=== PATIENT | female | born 1940 | race Caucasian/White ===

== ENCOUNTER → 2017-09-05 | Outpatient (CLI) | payer OTHER ==
[~2017-09-05] MED LIST: LEVO150T22
--- NOTE | 2017-09-06 13:17 | MAMMOGRAPHY REPORT ---
BILATERAL DIGITAL SCREENING MAMMOGRAM TOMOSYNTHESIS WITH CAD: 09/05/2017 CLINICAL HISTORY: Asymptomatic. Personal history of breast cancer. TECHNIQUE: Breast tomosynthesis in addition to standard 2D mammography was performed. Current study was also evaluated with a Computer Aided Detection (CAD) system. COMPARISON: Comparison is made to exams dated: 02/11/2016 mammogram, 01/22/2015 mammogram, 11/13/2013 mammogram, 11/06/2012 mammogram, 11/04/2011 mammogram, and 10/22/2010 mammogram - [facility] enter. BREAST COMPOSITION: There are scattered areas of fibroglandular density in both breasts. FINDINGS: There is evidence of prior bilateral breast surgery including expected architectural distor tion in each breast. Multiple surgical clips remain in place within the right breast. No new suspic ious mass, unexpected architectural distortion or cluster of microcalcifications is seen. IMPRESSION: ACR BI-RADS CATEGORY 1: NEGATIVE There is no mammographic evidence of malignancy. A 1 year screening mammogram is recommended. The pa tient will receive written notification of the results. Approximately 10% of breast cancers are not detected with mammography. A negative mammographic report should not delay biopsy if a clinically suggestive mass is present. Moon Junior M.D. ay/:09/05/2017 16:14:34 X Ray Physician: Jeniffer HIRSCH)(Magy), [facility] letter sent: Normal 1/2 BI-RADS Code: ACR BI-RADS Category 1: Negative
== END | disposition home or self-care (01) ==
LOC: C.MAMM 14:22
PROVIDERS: ATTEND Family Medicine
DX: Z12.31 Encounter for screening mammogram for malignant neoplasm of breast (principal)

== ENCOUNTER 2023-06-07 15:41 | Inpatient (IN) ==
[2023-06-07] MEDS ORDERED: Patient's HEIGHT &/or WEIGHT Needed SCH (15:54)
--- NOTE | 2023-06-07 15:59 | Emergency Department Note ---
Impression & Plan V-tach, Acute hypotension, JITENDRA (acute kidney injury), Metabolic acidosis ED Provider Note NAME: RUDY COATES AGE: 82 SEX: F : 1940 ARRIVES VIA: Ambulance INFORMANT: Patient ED PROVIDER(S): Jett Ferro DO CHIEF COMPLAINT: Weakness and diarrhea HPI: Patient is an 82-year-old female who presents to the ER with a past medical history of hypothyroidism that presents to the ER for weakness. She is pleasantly demented per EMS. They note that she has been having persistent diarrhea for the past 3 days. Denies any headache or change in vision. No chest pain or shortness of breath. No nausea or vomiting. They note that she did fall today. They also note that she has been very hypotensive with systolic pressures in the 80s. ADDITIONAL HISTORY OBTAINED: Per HPI Chronic Medical/Social Conditions Affecting Care: Per HPI PAST MEDICAL HISTORY:See Below PAST SURGICAL HISTORY:See Below FAMILY HISTORY:See Below SOCIAL HISTORY:See Below HOME MEDICATIONS:See Below ALLERGIES:See Below VITALS:See Below PHYSICAL EXAMINATION: GENERAL: Sitting up in bed, alert, chronically ill-appearing, disheveled EYE EXAM: normal conjunctiva. PERRL and EOM's grossly intact. OROPHARYNX:mucous membranes are dry NECK: supple, no nuchal rigidity, no adenopathy, non-tender LUNGS: Clear to auscultation. Normal chest wall mechanics HEART: no murmurs, S1 normal and S2 normal ABDOMEN: abdomen soft, non-tender, normo-active bowel sounds, no masses, no rebound or guarding. BACK: Back is symmetrical on inspection and there is no deformity, no midline tenderness, no CVA tenderness. SKIN: no rashes and no bruising UPPER EXTREMITIES: upper extremities are grossly normal. LOWER EXTREMITIES: No pitting edema. NEURO EXAM: Oriented to person, cranial nerves II-XII grossly intact, normal speech, no gross weakness of arms, no gross weakness of legs. MEDICAL DECISION MAKING: Patient is an 82-year-old female who presents ER for above-stated complaint. IV was established paroxetine. Labs show no significant leukocytosis or anemia. BMP shows metabolic acidosis with JITENDRA with creatinine 2.0. Lactate was normal. Mag was normal. LFTs bilirubin was unremarkable. TSH was unremarkable. UA was clean. Patient was given IV fluids. While she was here on the monitor she went into V. tach several x 1 of which appeared to be torsades. She was given magnesium and placed her on an amiodarone drip after third recurrence of short run of VT. She is a DNR/DNI but would want to be shocked if needed. Patient and family were updated at bedside to monitor closely. Consults/Care Managements Discussions: Per [facility] Triage Nursing notes reviewed. Limited review of prior medical records performed Vital Signs: reviewed and remarkable for no significant abnormalities Differential diagnosis: Differential diagnoses includes but is not limited to gastritis, peptic ulcer disease, GERD, gallbladder disease, pancreatitis, small bowel obstruction, appendicitis, diverticulitis, hernia, urinary tract infection, torsion, perforation, trauma, infectious. ER treatment provided: See below Diagnostics interpreted by me include EKG and cardiac monitoring as listed below: -Cardiac Monitoring: An order was placed for continuous cardiac monitoring. The monitor shows a rate of 83 with sinus rhythm. -ECG: Sinus rhythm rate 82 Left axis PVCs QTc 467 -Laboratory studies:Interpreted by me as stated above in MDM and shown below. Imaging studies: Xrays: As interpreted by me: Portable AP upright 1 view of the chest shows no focal Midrid CTs show: CT head and abdomen pelvis and head was unremarkable Procedures:none Critical Care: I have personally spent 32 minutes of critical care time in the direct management of this patient. This includes bedside care, interpretation of diagnostic studies, and testing, discussion with consultants, patient, and family members, and other required patient management activities. This 32 minutes is in excess of all separately billable procedures. Past Med/Surg History Medical History Tinnitus, bilateral Sensorineural hearing loss of both ears Dementia Hypothyroid Social History Smoking Status: Unknown if ever smoked Preferred Language: Uzbek Current Living Situation: Personal Care Facility Feels Safe at Home: Yes Allergies Allergies Allergy/AdvReac Type Severity Reaction Status Date / Time Sulfa (Sulfonamide Allergy Unknown Unknown Unverified 06/07/23 16:15 Antibiotics) Home Meds Home Medications Medication Instructions Recorded Confirmed cholecalciferol (vitamin D3) 125 125 mcg PO QAM 06/08/20 06/07/23 mcg (5,000 unit) tablet (Vitamin D3) levothyroxine 125 mcg tablet 125 mcg PO DAILYBB 06/08/20 06/07/23 lisinopril 10 mg tablet 10 mg PO QAM 06/08/20 06/07/23 lorazepam 0.5 mg tablet 0.5 mg PO .DAILY AT 12:00 PM 06/08/20 06/07/23 acetaminophen 325 mg tablet 650 mg PO Q4 PRN Fever Or Pain 10/23/20 06/07/23 melatonin 3 mg disintegrating 3 mg PO HS 10/23/20 06/07/23 tablet aspirin 81 mg chewable tablet 81 mg PO DAILY 06/18/21 06/07/23 docusate sodium 100 mg capsule 100 mg PO HS 06/18/21 06/07/23 citalopram 40 mg tablet 40 mg PO DAILY 04/29/23 06/07/23 cyanocobalamin (vitamin B-12) 1,000 mcg PO DAILY 04/29/23 06/07/23 1,000 mcg tablet (Vitamin B-12) fluticasone propionate 50 1 spray intranasal HS 04/29/23 06/07/23 mcg/actuation nasal spray,suspension lorazepam 0.5 mg tablet 0.5 mg PO DAILY pain per harmony 04/29/23 06/07/23 potassium chloride 20 mEq 20 meq PO DAILY 04/29/23 06/07/23 tablet,extended release(part/cryst) quetiapine 50 mg tablet 50 mg PO .BID AT 8AM & 2PM 04/29/23 06/07/23 quetiapine 50 mg tablet 100 mg PO HS 04/29/23 06/07/23 loperamide 2 mg tablet (Imodium 2 mg PO QID PRN Diarrhea 06/07/23 06/07/23 A-D) ondansetron HCl 4 mg tablet 4 mg PO Q6H PRN Nausea 06/07/23 06/07/23 tramadol 50 mg tablet 50 mg PO BID PRN pain 06/07/23 06/07/23 Results & Data (ED) Vital Signs Vital Signs - 24 hr 06/07/23 15:54 06/07/23 15:58 06/07/23 17:01 Temperature 36.6 C Temperature Source Oral Pulse Rate 82 77 Pulse Rate [Apical] 77 Respiratory Rate 24 15 Respiratory Effort / Characteristics Non-Labored Spontaneous Respiratory Pattern Blood Pressure 97/68 L Blood Pressure [Right Arm] 122/70 Blood Pressure Mean 77 Blood Pressure Mean [Right Arm] 87 Blood Pressure Position [Right Arm] Lying Pulse Oximetry 94 100 Oxygen Delivery Method Room Air Room Air Sepsis Recent Fever Within 48 Hours No Sepsis New/Unexplained Change in Mental Status No Sepsis Action Taken by Nursing Physician Notified 06/07/23 18:41 06/07/23 19:11 Temperature Temperature Source Pulse Rate 81 Pulse Rate [Apical] 83 Respiratory Rate 20 Respiratory Effort / Characteristics Non-Labored Spontaneous Respiratory Pattern Regular Blood Pressure Blood Pressure [Right Arm] 120/70 Blood Pressure Mean Blood Pressure Mean [Right Arm] 86 Blood Pressure Position [Right Arm] Lying Pulse Oximetry 98 Oxygen Delivery Method Room Air Sepsis Recent Fever Within 48 Hours Sepsis New/Unexplained Change in Mental Status Sepsis Action Taken by Nursing Laboratory Data 06/07/23 16:24 06/07/23 16:24 Lab Results 06/07/23 06/07/23 06/07/23 Range/Units 16:05 16:24 18:46 WBC 7.29 (4.8-10.8) K/ul RBC 4.17 L (4.20-5.40) M/uL Hgb 12.6 (12.0-16.0) g/dl Hct 39.8 (37.0-47.0) % MCV 95.4 (80.0-100.0) fL MCH 30.2 (25.0-34.0) pg MCHC 31.7 L (32.0-36.0) g/dL RDW Std Deviation 49.5 H (36.4-46.3) fL RDW Coeff of Luis Miguel 14.1 (11.5-14.5) % Plt Count 274 (130-400) K/uL MPV 9.6 (9.4-12.4) fL Immature Gran % (Auto) 1.1 % Neut % (Auto) 80.5 % Lymph % (Auto) 9.1 % [place] % (Auto) 7.0 % Eos % (Auto) 1.8 % Baso % (Auto) 0.5 % Neut # (Auto) 5.87 (1.40-6.50) K/uL Lymph # (Auto) 0.66 L (1.20-3.40) K/uL [place] # (Auto) 0.51 (0.11-0.59) K/uL Eos # (Auto) 0.13 (0.00-0.50) K/uL Baso # (Auto) 0.04 (0.00-0.20) K/uL Immature Gran # (Auto) 0.08 (0.01-0.20) K/uL Sodium 138 (136-145) mmol/L Potassium 3.8 (3.5-5.1) mmol/L Chloride 111 H (98-107) mmol/L Carbon Dioxide 18 L (21-32) mmol/L Anion Gap 9 (3-11) BUN 52 H (6-23) mg/dl Creatinine 2.07 H (0.6-1.2) mg/dl Est Cr Clr Drug Dosing Not Reportable Est GFR ( Amer) 24.9 ml/min Est GFR (Non-Af Amer) 21.4 ml/min BUN/Creatinine Ratio 25.1 H (10-20) Glucose 104 H (70-99(Fasting)) mg/dl Lactate 1.1 (0.4-2.0) mmol/L Calcium 8.6 (8.6-10.3) mg/dl Magnesium 1.8 (1.7-2.4) mg/dl Total Bilirubin 0.4 (0.2-1.0) mg/dl AST 14 (13-39) U/L ALT 12 (7-52) U/L Alkaline Phosphatase 80 (34-104) U/L Troponin I High Sens 11.8 (0-14) pg/ml Total Protein 6.0 (6.0-8.3) gm/dl Albumin 3.7 (3.4-5.0) gm/dl Globulin 2.3 L (2.5-4.0) gm/dl Albumin/Globulin Ratio 1.6 (0.9-2) Lipase 61 (11-82) U/L TSH 1.649 (0.300-4.500) uIu/ml Urine Color Yellow Urine Appearance Clear (Clear) Urine pH 5.0 (4.5-7.5) Ur Specific [place] 1.016 (1.000-1.030) Urine Protein Trace H (Negative) Urine Glucose (UA) Negative (Negative) Urine Ketones Trace H (Negative) Urine Blood Negative (Negative) Urine Nitrite Negative (Negative) Urine Bilirubin Negative (Negative) Urine Urobilinogen Negative (Negative) Ur Leukocyte Esterase Negative (Negative) Urine WBC (Auto) 1-5 (0-5) /hpf Urine RBC (Auto) 0-4 (0-4) /hpf U Hyaline Cast (Auto) 1-5 (0-5) /lpf U Epithel Cells (Auto) 5-10 H (0-5) /lpf Urine Bacteria (Auto) Negative (Negative) Administered Medications Magnesium Sulfate/Dextrose (Magnesium Sulfate / D5w) 1 gm in 100 mls @ 50 mls/hr IV Q2H BETHANY Stop: 06/07/23 22:44 Last Admin: 06/07/23 20:23 Dose: 50 mls/hr Documented By: Infusion: 06/07/23 20:23 Dose: Infused Documented By: Admin: 06/07/23 19:02 Dose: 50 mls/hr Documented By: AB Amiodarone HCl/Dextrose (Nexterone / D5w) 360 mg in 200 mls @ 33.333 mls/hr IV ONE ONE Stop: 06/08/23 00:55 Last Admin: 06/07/23 19:16 Dose: 1 mg/min, 33.3 mls/hr Documented By: Co-signed By: PRECIOUS Parenteral Electrolytes (Plasma-Lyte A Ph 7.4) 1,000 mls @ 100 mls/hr IV .Q10H BETHANY Stop: 07/07/23 20:44 Last Admin: 06/07/23 20:22 Dose: 100 mls/hr Documented By: Discontinued Medications Amiodarone HCl (Amiodarone Iv Bolus & Drip) 1 each IV NOW STA; Protocol Stop: 06/07/23 18:47 Last Admin: 06/07/23 19:10 Dose: Not Given Documented By: AB Aspirin (Aspirin Chew 324 Mg) 324 mg PO NOW STA Stop: 06/07/23 21:23 Last Admin: 06/07/23 22:28 Dose: 324 mg Documented By: AB Ceftriaxone Sodium (Rocephin) 2,000 mg in 50 mls @ 100 mls/hr IV NOW STA Stop: 06/07/23 16:24 Last Infusion: 06/07/23 16:58 Dose: Infused Documented By: Admin: 06/07/23 16:20 Dose: 100 mls/hr Documented By: AB Sodium Chloride (Nss) 1,000 mls @ 999 mls/hr IV .Q1H1M ONE Stop: 06/07/23 18:52 Last Infusion: 06/07/23 19:09 Dose: Infused Documented By: Admin: 06/07/23 17:57 Dose: 999 mls/hr Documented By: AB Sodium Chloride (Nss) 500 mls @ 999 mls/hr IV .Q31M ONE Stop: 06/07/23 18:23 Last Infusion: 06/07/23 19:10 Dose: Infused Documented By: Admin: 06/07/23 17:57 Dose: 999 mls/hr Documented By: AB Amiodarone HCl/Dextrose (Nexterone / D5w) 150 mg in 100 mls @ 600 mls/hr IV NOW STA Stop: 06/07/23 18:55 Last Infusion: 06/07/23 19:14 Dose: Infused Documented By: Co-signed By: PRECIOUS Admin: 06/07/23 19:02 Dose: 600 mls/hr Documented By: Co-signed By: WILFRIDO Parenteral Electrolytes (Plasma-Lyte A Ph 7.4) 500 mls @ 999 mls/hr IV .Q31M ONE Stop: 06/07/23 20:01 Last Infusion: 06/07/23 20:26 Dose: Infused Documented By: Admin: 06/07/23 19:49 Dose: 999 mls/hr Documented By: Magnesium Sulfate/Dextrose (Magnesium Sulfate 1gm / D5w Bag) Confirm Administered Dose 2 gm IV .STK-MED ONE Stop: 06/07/23 18:36 Last Admin: 06/07/23 19:01 Dose: Not Given Documented By: Miscellaneous (Stat Iv Infusion Titration Per Protocol) 1 each N/A NOW STA Stop: 06/07/23 18:47 Last Admin: 06/07/23 19:10 Dose: Not Given Documented By: Imaging Data Radiologist's Impression: Head CT 06/07/23 15:55 CT head/brain wo con CLINICAL HISTORY: fall Technique: Contiguous axial CT images of the head were acquired from the base of the skull to the vertex without intravenous contrast administration. Images were viewed in brain, subdural and bone windows. Automated dose lowering techniques and/or adjustment according to patient size were utilized for this exam. Comparison: Comparison is made to CT head 04/29/2023 Findings: Areas of decreased attenuation are present in the periventricular and subcortical white matter bilaterally consistent with small vessel ischemic disease. Generalized cerebral atrophy with commensurate enlargement of the ventricles, sulci, and cisterns is also present. There is no acute intracranial hemorrhage or evidence of acute territorial infarction. No shift of the midline structures, mass effect, or extra-axial abnormalities are shown. Atherosclerotic calcifications are present in the intracranial segments of the internal carotid arteries. Imaged portions of the paranasal sinuses and mastoid air cells are clear. The orbits appear normal. There are no acute fractures of the calvaria or scalp swelling. Impression: No acute intracranial hemorrhage, no evidence of acute territorial infarction or other acute intracranial disease process. ACT 112: Negative or not required by law. Electronically signed by: Broderick Bose M.D. 06/07/2023 5:49 PM Abdomen/Pelvis CT 06/07/23 17:21 CT abd pelvis wo con CLINICAL HISTORY: abd pain TECHNIQUE: Helical axial images of the abdomen and pelvis were obtained. Automated dose lowering techniques and/or adjustment according to patient size were utilized for this exam. This exam was performed without intravenous contrast. COMPARISON: Comparison is made to CT abdomen pelvis 03/28/2009 FINDINGS: Lower chest: Cardiomegaly is seen. Liver: Hepatic cysts are seen. Gallbladder and biliary tree: No calcified gallstones. Normal caliber wall. No intra- or extrahepatic biliary ductal dilation. Pancreas: Unremarkable, no focal lesions. Spleen: Tiny splenic hypodensity is nonspecific but may represent hemangioma. Adrenals: Unremarkable. Kidneys and ureters: Unremarkable. Bladder: Unremarkable. Reproductive organs: Unremarkable. Bowel: A hiatal hernia is seen. Lymph nodes Retroperitoneal: Unremarkable. Pelvic: Unremarkable. Mesenteric: Subcentimeter lymph nodes are noted. Peritoneum: Normal. Vessels: Atherosclerotic calcifications are seen. Abdominal wall: Unremarkable. Bones: Degenerative changes in the visualized spine. IMPRESSION: No acute abnormalities and in particular no evidence of acute fractures. ACT 112: Negative or not required by law. Electronically signed by: Broderick Bose M.D. 06/07/2023 6:05 PM Chest X-Ray 06/07/23 17:52 XR chest 1V portable CLINICAL HISTORY: weak TECHNIQUE: Single frontal radiograph of the chest was obtained. Comparison: Comparison is made to chest radiograph 02/15/2023 FINDINGS: No lines and tubes are seen. Cardiomegaly is noted. The lungs are clear. No evidence of pleural effusion or pneumothorax. IMPRESSION: No acute chest disease. ACT 112: Negative or not required by law. Electronically signed by: Broderick Bose M.D. 06/07/2023 6:06 PM Discharge Plan Visit Data Chief Complaint: Weakness Stated Complaint: ILLNESS X3 DAYS, FALL TODAY, WEAKNESS ED Provider: Jett Ferro Discharge Problem: V-tach, Acute hypotension, JITENDRA (acute kidney injury), Metabolic acidosis
[2023-06-07] MEDS: cefTRIAXone SODIUM 2,000 MG/50 ML BAG IV STA (16:20)
[2023-06-07 16:31] LABS: Appearance Urine Clear (Clear); Bacteria Urine Automated Negative (Negative); Bilirubin Urine Negative (Negative); Blood Urine Negative (Negative); Color Urine Yellow; Glucose Urine UA Negative (Negative); Ketones Urine Trace (Negative); Leukocyte Esterase Urine Negative (Negative); Nitrite Urine Negative (Negative); Protein Urine Trace (Negative); RBC Urine Automated 0-4 /hpf (0-4); Specific Gravity Urine 1.016 (1.000-1.030); Urobilinogen Urine Negative (Negative)
[2023-06-07 16:58] LABS: Basophils # (auto) 0.04 K/uL (0.00-0.20); Basophils % (auto) 0.5 %; Eosinophils # (auto) 0.13 K/uL (0.00-0.50); Eosinophils % (auto) 1.8 %; Hematocrit (blood only) 39.8 % (37.0-47.0); Hemoglobin 12.6 g/dl (12.0-16.0); Immature Granulocytes # (auto) 0.08 K/uL (0.01-0.20); Immature Granulocytes % (auto) 1.1 %; Lymphocytes # (auto) 0.66 K/uL (1.20-3.40); Lymphocytes % (auto) 9.1 %; Mean Corpuscular Hemoglobin 30.2 pg (25.0-34.0); Mean Corpuscular Hgb Conc 31.7 g/dL (32.0-36.0); Mean Corpuscular Volume 95.4 fL (80.0-100.0); Mean Platelet Volume 9.6 fL (9.4-12.4); Monocytes # (auto) 0.51 K/uL (0.11-0.59); Neutrophils # (auto) 5.87 K/uL (1.40-6.50); Neutrophils % (auto) 80.5 %; Platelet Count 274 K/uL (130-400); RDW Coefficient of Variation 14.1 % (11.5-14.5); RDW Standard Deviation 49.5 fL (36.4-46.3); Red Blood Count 4.17 M/uL (4.20-5.40); White Blood Count 7.29 K/ul (4.8-10.8)
[2023-06-07 17:15] LABS: Alanine Aminotransferase 12 U/L (7-52); Albumin Globulin Ratio 1.6 (0.9-2); Albumin Level 3.7 gm/dl (3.4-5.0); Alkaline Phosphatase 80 U/L (34-104); Anion Gap 9 (3-11); Aspartate Aminotransferase 14 U/L (13-39); BUN Creatinine Ratio 25.1 (10-20); Bilirubin,Total 0.4 mg/dl (0.2-1.0); Blood Urea Nitrogen 52 mg/dl (6-23); Calcium 8.6 mg/dl (8.6-10.3); Carbon Dioxide 18 mmol/L (21-32); Chloride 111 mmol/L (98-107); Est GFR (African American) 24.9 ml/min; Est GFR (Non-African American) 21.4 ml/min; Globulin 2.3 gm/dl (2.5-4.0); Glucose 104 mg/dl (70-99(Fasting)); Lipase 61 U/L (11-82); Potassium 3.8 mmol/L (3.5-5.1); Sodium 138 mmol/L (136-145)
[2023-06-07 17:21] LABS: Troponin I High Sensitivity 11.8 pg/ml (0-14)
--- NOTE | 2023-06-07 17:50 | Electrocardiogram Report ---
Test Reason : Blood Pressure : / mmHG Vent. Rate : 082 BPM Atrial Rate : 082 BPM P-R Int : 164 ms QRS Dur : 098 ms QT Int : 400 ms P-R-T Axes : 057 -48 052 degrees QTc Int : 467 ms Normal sinus rhythm Left axis deviation Minimal voltage criteria for LVH, may be normal variant Abnormal ECG When compared with ECG of 15-FEB-2023 11:22, Premature ventricular complexes are no longer Present Premature supraventricular complexes are no longer Present Criteria for Anteroseptal infarct are no longer Present Nonspecific T wave abnormality no longer evident in Anterior leads Confirmed by Jean-Claude Lynch ([id number]) on 06/07/2023 5:49:38 PM Referred By: Confirmed By:Juan Lynch
--- NOTE | 2023-06-07 17:51 | CT Scan Report ---
CT head/brain wo con CLINICAL HISTORY: fall Technique: Contiguous axial CT images of the head were acquired from the base of the skull to the farhat guille without intravenous contrast administration. Images were viewed in brain, subdural and bone [facility] ws. Automated dose lowering techniques and/or adjustment according to patient size were utilized for this exam. Comparison: Comparison is made to CT head 04/29/2023 Findings: Areas of decreased attenuation are present in the periventricular and subcortical white matter bilate rally consistent with small vessel ischemic disease. Generalized cerebral atrophy with commensurate e nlargement of the ventricles, sulci, and cisterns is also present. There is no acute intracranial hem orrhage or evidence of acute territorial infarction. No shift of the midline structures, mass effect, or extra-axial abnormalities are shown. Atherosclerotic calcifications are present in the intracran ial segments of the internal carotid arteries. Imaged portions of the paranasal sinuses and mastoid air cells are clear. The orbits appear normal. There are no acute fractures of the calvaria or scalp swelling. Impression: No acute intracranial hemorrhage, no evidence of acute territorial infarction or other acute intracra nial disease process. ACT 112: Negative or not required by law. Electronically signed by: Broderick Bose M.D. 06/07/2023 5:49 PM
[2023-06-07] MEDS: SODIUM CHLORIDE 0.9% 500 ML IV ONE (17:57)
[2023-06-07] MEDS: SODIUM CHLORIDE 0.9% 1,000 ML IV ONE (17:57)
--- NOTE | 2023-06-07 18:07 | CT Scan Report ---
CT abd pelvis wo con CLINICAL HISTORY: abd pain TECHNIQUE: Helical axial images of the abdomen and pelvis were obtained. Automated dose lowering tech niques and/or adjustment according to patient size were utilized for this exam. This exam was perfor med without intravenous contrast. COMPARISON: Comparison is made to CT abdomen pelvis 03/28/2009 FINDINGS: Lower chest: Cardiomegaly is seen. Liver: Hepatic cysts are seen. Gallbladder and biliary tree: No calcified gallstones. Normal caliber wall. No intra- or extrahepatic biliary ductal dilation. Pancreas: Unremarkable, no focal lesions. Spleen: Tiny splenic hypodensity is nonspecific but may represent hemangioma. Adrenals: Unremarkable. Kidneys and ureters: Unremarkable. Bladder: Unremarkable. Reproductive organs: Unremarkable. Bowel: A hiatal hernia is seen. Lymph nodes Retroperitoneal: Unremarkable. Pelvic: Unremarkable. Mesenteric: Subcentimeter lymph nodes are noted. Peritoneum: Normal. Vessels: Atherosclerotic calcifications are seen. Abdominal wall: Unremarkable. Bones: Degenerative changes in the visualized spine. IMPRESSION: No acute abnormalities and in particular no evidence of acute fractures. ACT 112: Negative or not required by law. Electronically signed by: Broderick Bose M.D. 06/07/2023 6:05 PM
--- NOTE | 2023-06-07 18:07 | XRay Report ---
XR chest 1V portable CLINICAL HISTORY: weak TECHNIQUE: Single frontal radiograph of the chest was obtained. Comparison: Comparison is made to chest radiograph 02/15/2023 FINDINGS: No lines and tubes are seen. Cardiomegaly is noted. The lungs are clear. No evidence of pleural effus ion or pneumothorax. IMPRESSION: No acute chest disease. ACT 112: Negative or not required by law. Electronically signed by: Broderick Bose M.D. 06/07/2023 6:06 PM
--- NOTE | 2023-06-07 18:34 | History & Physical Report ---
Date of Service June 07, 2023 Assessment & Plan (1) Diarrhea: Plan: 1 week of viral illness, normal CT abdomen and pelvis, no leukocytosis Suspect based on improved nausea/vomiting and diarrhea that this is a viral illness Stool bio fire pending, C diff pending Patient is severely volume contracted with a CAD exam Initially given saline, patient is with a hyperchloremic metabolic acidosis chloride 111/, dioxide 18. Saline discontinued and converted to Plasma-Lyte. This may not be available due to stock issues, if so will be switched to LR Potassium 3.8 Magnesium ordered, subsequently 1.8. Replete to goal greater than 2.0 Patient with development of torsades while in room as noted (2) Hypothyroid: Plan: TSH pending (3) Dementia: Plan: Home quetiapine/citalopram held due to development of torsades Delirium precautions (4) Torsades de pointes: Plan: Patient developed multiple episodes of polymorphic V. tach while on monitor during HPI. Episode lasting between 2 to 3 seconds, patient was asymptomatic and conversing normally with provider without chest pain instrumentations during this episode Magnesium 2g ordered EKG with normal sinus rhythm, QTc 467. Amiodarone bolus and drip continued Cardiology consulted Echo ordered Replete potassium to 4.0, mag 2.0. DDx includes electrolyte depletion in the setting of diarrheal illness; however mag was not all that low at 1.8 at time of admit. May have been pot entiated by metabolic acidosis and hyperchloremia and w/ worsened acidosis during initial volume expansion; patient has been switched to Plasma-Lyte No ischemic signs or symptoms. Patient cannot give a good history due to dementia Plan DVT: Heparin CODE: Conditional. NO CPR/INTUBATION. OK for shock/meds Dispo: PCU Diet: HH History of Present Illness Primary Care Provider: [facility] Angelika Jacome is an 82-year-old female with history of hypothyroidism who presents with diarrhea and weakness for 3 days. 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 He was hypotensive in the 80s, BP rapidly normalized following 1500 cc of saline and empiric Rocephin. UA is not infected appearing. CT of the abdomen and pelvis shows no acute abnormalities. CT of the head is without acute findings, chest x-ray is without acute findings. She has an JITENDRA from baseline creatinine of approximately 1.1, 2.07 and volume contracted on admission. Potassium is normal, she is mildly hypochloremic with a suspected metabolic acidosis. No lactate present at time of initial eval, ordered on hospitalist assessment Angelika seen at the bedside with her friend/POLacy carlisle present. History is limited by dementia, she is pleasant but a very poor historian. Per her daughter/POA Angelika was in her usual state of health up until approximately 7 days ago when she developed a stomach bug and had nonbloody nonbilious nausea/vomiting for a few days and diarrhea. Diarrhea has continued and is mostly liquid. She has had poor p.o. intake. She has had increased fatigue and has had several falls, Thomas is not able to give a history of her whether she lost consciousness or not and does not remember falling. Head CT is normal she has no neck pain. CT of the abdomen and pelvis is with no acute abnormalities. No additional subjective history available Patient has no cardiac history, and denies chest pain, chest pressure, shortness of breath, and pain at time of assessment. While at bedside patient developed multiple episodes of polymorphic V. tach on monitor with a subsequent episode lasting between 2 and 3 seconds. 2 g magnesium was ordered stat and immediately hung. Magnesium level was ordered, subsequently 1.8. She was asymptomatic during her runs of pVT. Potassium was 3.8. Did discuss her case with her POA Angelika at bedside. Confirms DNR/DNI however would be amenable to shock and antiarrhythmic medications. Patient was started on amiodarone. Admitted to PCU for further care. Case was discussed with cardiology, agree with management above. Allergies Allergy/AdvReac Type Severity Reaction Status Date / Time Sulfa (Sulfonamide Allergy Unknown Unknown Unverified 06/07/23 16:15 Antibiotics) Home Medications Medication Instructions Recorded Confirmed Type cholecalciferol (vitamin D3) 125 125 mcg PO QAM 06/08/20 06/07/23 History mcg (5,000 unit) tablet (Vitamin D3) levothyroxine 125 mcg tablet 125 mcg PO DAILYBB 06/08/20 06/07/23 History lisinopril 10 mg tablet 10 mg PO QAM 06/08/20 06/07/23 History lorazepam 0.5 mg tablet 0.5 mg PO .DAILY AT 12:00 PM 06/08/20 06/07/23 History acetaminophen 325 mg tablet 650 mg PO Q4 PRN Fever Or Pain 10/23/20 06/07/23 History melatonin 3 mg disintegrating 3 mg PO HS 10/23/20 06/07/23 History tablet aspirin 81 mg chewable tablet 81 mg PO DAILY 06/18/21 06/07/23 History docusate sodium 100 mg capsule 100 mg PO HS 06/18/21 06/07/23 History citalopram 40 mg tablet 40 mg PO DAILY 04/29/23 06/07/23 History cyanocobalamin (vitamin B-12) 1,000 mcg PO DAILY 04/29/23 06/07/23 History 1,000 mcg tablet (Vitamin B-12) fluticasone propionate 50 1 spray intranasal HS 04/29/23 06/07/23 History mcg/actuation nasal spray,suspension lorazepam 0.5 mg tablet 0.5 mg PO DAILY pain per harmony 04/29/23 06/07/23 History potassium chloride 20 mEq 20 meq PO DAILY 04/29/23 06/07/23 History tablet,extended release(part/cryst) quetiapine 50 mg tablet 50 mg PO .BID AT 8AM & 2PM 04/29/23 06/07/23 History quetiapine 50 mg tablet 100 mg PO HS 04/29/23 06/07/23 History loperamide 2 mg tablet (Imodium 2 mg PO QID PRN Diarrhea 06/07/23 06/07/23 History A-D) ondansetron HCl 4 mg tablet 4 mg PO Q6H PRN Nausea 06/07/23 06/07/23 History tramadol 50 mg tablet 50 mg PO BID PRN pain 06/07/23 06/07/23 History Past Med/Surg History Medical History Tinnitus, bilateral Sensorineural hearing loss of both ears Dementia Hypothyroid Social History Smoking Status: Unknown if ever smoked Preferred Language: [place] Current Living Situation: Personal Care Facility Feels Safe at Home: Yes Physical Exam Physical Exam: General: Oriented to name only. Pleasant, cooperative HEENT: Atraumatic, normocephalic. Vision and hearing grossly intact Pulm: CTAB A&P. -wheezes, -rales, -rhonchi. Symmetrical chest rise. No increased work of breathing. No respiratory distress. Cardiac: RRR, +sm. Radial pulses intact and symmetrical. Abdominal: Nontender, nondistended, soft. BS present. Ext: warm, dry. NO edema. moves laurita xtremities equally. Results & Data Results & Data Vital Signs (Past 12 Hours) Vital Signs Temp Pulse Pulse Resp BP BP Pulse Ox 06/07/23 17:01 77 15 122/70 100 06/07/23 15:58 77 06/07/23 15:54 36.6 C 82 24 97/68 L 94 O2 Del Method 06/07/23 17:01 Room Air 06/07/23 15:58 06/07/23 15:54 Room Air PG Care Time/CCT Total # of Minutes Spent Total Time Spent with Patient: Total time spent is greater than 50% in coordination of care (as documented) at patient's floor/unit and/or counseling patient: Coding Level of Care Code 77649 INT INP/OBS CARE 3/75MIN Diagnoses Diarrhea R19.7 Hypothyroid E03.9 Dementia F03.90 Torsades de pointes I47.21
[2023-06-07] MEDS ORDERED: 0.2 MICRON FILTER SET 1 EACH IV STA (18:46)
[2023-06-07 18:58] LABS: Magnesium 1.8 mg/dl (1.7-2.4)
[2023-06-07] MEDS: MAGNESIUM SULFATE 1GM / D5W BAG IV ONE (19:01)
[2023-06-07] MEDS: AMIODARONE / D5W 150 MG/100 ML BAG IV STA (19:02)
[2023-06-07] MEDS: MAGNESIUM SULFATE / D5W 1 GM/100 ML BAG IV SCH (19:02)
[2023-06-07] MEDS: AMIODARONE IV BOLUS & DRIP IV STA (19:10)
[2023-06-07] MEDS: STAT IV Infusion **Titration per Protocol STA (19:10)
[2023-06-07] MEDS: AMIODARONE / D5W 360 MG/200 ML BAG IV ONE (19:16)
[2023-06-07] MEDS: PLASMA-LYTE A 500 ML IV ONE (19:49)
[2023-06-07 20:12] LABS: Thyroid Stimulating Hormone 1.649 uIu/ml (0.300-4.500)
[2023-06-07] MEDS: PLASMA-LYTE A 1,000 ML IV SCH (20:22)
[2023-06-07] MEDS ORDERED: Heparin IV Adult Wt-Based Low-Dose w/ INITIAL Bolus Protocol IV SCH (21:16)
[2023-06-07] MEDS ORDERED: HEPARIN SOD 5,000 UNIT/0.5 ML VIAL SQ SCH (22:00)
[2023-06-07] MEDS: ASPIRIN CHEW 324 MG PO STA (22:28)
[2023-06-07] MEDS: HEPARIN SOD (PORCINE) 1000 UNIT/ML IV ONE (22:29)
[2023-06-07] MEDS: HEPARIN SODIUM/DEXTROSE 25,000 UNITS/500 ML BAG IV SCH (22:31)
[2023-06-07] MEDS ORDERED: ACETAMINOPHEN 325 MG TAB PO PRN (22:38)
[2023-06-07] MEDS ORDERED: QUEtiapine FUMARATE 100 MG TABLET PO SCH (22:38)
[2023-06-07] MEDS ORDERED: LOPERAMIDE HCL 2 MG CAP PO PRN (23:27)
[2023-06-08] MEDS: DOCUSATE SODIUM 100 MG CAP PO SCH (00:05)
[2023-06-08] MEDS: POTASSIUM CHLORIDE 20 MEQ/15 ML UDC PO SCH (00:05)
[2023-06-08] MEDS: MELATONIN 3 MG TAB PO SCH (00:05)
[2023-06-08] MEDS: POTASSIUM CHLORIDE / WTR 10 MEQ/100 ML PLCT IV SCH (00:21)
[2023-06-08] MEDS: AMIODARONE / D5W 360 MG/200 ML BAG IV SCH (01:15)
[2023-06-08 04:36] LABS: Basophils # (auto) 0.02 K/uL (0.00-0.20); Basophils % (auto) 0.3 %; Eosinophils # (auto) 0.24 K/uL (0.00-0.50); Eosinophils % (auto) 3.8 %; Hematocrit (blood only) 34.2 % (37.0-47.0); Hemoglobin 10.8 g/dl (12.0-16.0); Immature Granulocytes # (auto) 0.05 K/uL (0.01-0.20); Immature Granulocytes % (auto) 0.8 %; Lymphocytes # (auto) 1.17 K/uL (1.20-3.40); Lymphocytes % (auto) 18.3 %; Mean Corpuscular Hemoglobin 29.9 pg (25.0-34.0); Mean Corpuscular Hgb Conc 31.6 g/dL (32.0-36.0); Mean Corpuscular Volume 94.7 fL (80.0-100.0); Mean Platelet Volume 9.3 fL (9.4-12.4); Monocytes # (auto) 0.47 K/uL (0.11-0.59); Monocytes % (auto) 7.4 %; Neutrophils # (auto) 4.43 K/uL (1.40-6.50); Neutrophils % (auto) 69.4 %; Platelet Count 269 K/uL (130-400); RDW Coefficient of Variation 14.1 % (11.5-14.5); RDW Standard Deviation 48.9 fL (36.4-46.3); Red Blood Count 3.61 M/uL (4.20-5.40); White Blood Count 6.38 K/ul (4.8-10.8)
[2023-06-08 04:48] LABS: Creatinine Clr Calc Pharmacy 26.4 ml/min; Est GFR (African American) 33.9 ml/min; Est GFR (Non-African American) 29.3 ml/min; Magnesium 2.3 mg/dl (1.7-2.4); Potassium 3.8 mmol/L (3.5-5.1)
[2023-06-08 05:10] LABS: ANTI-Xa, UFH(UnfractionatedHep 0.22 IU/ml (0.3-0.7); Partial Thromboplastin Ratio 1.3; Partial Thromboplastin Time 36 Seconds (21-31)
[2023-06-08] MEDS: LEVOTHYROXINE SODIUM 125 MCG TABLET PO SCH (06:41)
[2023-06-08] MEDS: CYANOCOBALAMIN (B-12) 500 MCG TABLET PO SCH (08:05)
[2023-06-08] MEDS: CHOLECALCIFEROL 125 MCG (5,000 UNITS) TAB PO SCH (08:05)
[2023-06-08] MEDS: ASPIRIN 81 MG ECTAB PO SCH (08:05)
--- NOTE | 2023-06-08 08:20 | Electrocardiogram Report ---
Test Reason : Blood Pressure : / mmHG Vent. Rate : 071 BPM Atrial Rate : 071 BPM P-R Int : 176 ms QRS Dur : 102 ms QT Int : 434 ms P-R-T Axes : 058 -34 050 degrees QTc Int : 471 ms Sinus rhythm with PACs Left axis deviation Minimal voltage criteria for LVH, may be normal variant Abnormal ECG Confirmed by Jean-Claude Lynch ([id number]) on 06/08/2023 8:20:11 AM Referred By: [facility] Confirmed By:Juan Lynch
[2023-06-08] MEDS ORDERED: lisinopril 10 MG TAB PO SCH (09:00)
[2023-06-08] MEDS ORDERED: POTASSIUM CHLORIDE CRTAB 20 MEQ TABCR PO SCH (09:00)
[2023-06-08] MEDS ORDERED: ASPIRIN 81 MG CHEW PO SCH (09:00)
--- NOTE | 2023-06-08 09:30 | XCELERA ---
[id number]
--- NOTE | 2023-06-08 11:34 | Cardiology Consultation ---
Date of Consultation June 08, 2023 Assessment & Plan (1) V-tach: (2) Valvular heart disease: (3) Elevated troponin: Plan 1. VT. This was artifactual. There was a lot of artifact in the recording around that time. I think you can clearly march out the underlying rhythm during periods of presumed polymorphic ventricular tachycardia. Also, she did not present with a condition that would likely have produced polymorphic tachycardia. No evidence of ischemia. Normal echocardiogram without regional wall motion abnormalities. Normal QT interval on her EKG and normal electrolytes. I do not believe she requires any treatment for what did not appear to be actual VT. 2. Valvular heart disease: She has an element of aortic and mitral regurgitation. Not severe. No symptoms. This can be monitored over time, although in the setting of her significant dementia unlikely to require any intervention. 3. Elevated troponin: Very mild elevation not indicative of an acute coronary syndrome. I do not think this represents ischemia nor would it have been a substrate for ventricular tachycardia 4. Frequent falls. Most likely related to her gait disturbance. Unfortunately, the patient is not a good historian. And arrhythmia could not be definitively excluded although there has been no reports of actual syncope. I the closer monitoring at her facility or. Ambulatory monitoring could be considered. History of Present Illness Reason for Consultation: Ventricular tachycardia Requesting Physician: Teresa Attending Physician: Christi Woodard DO History of Present Illness The patient is an 82-year-old woman without a known history of cardiac disease who was brought to the hospital from her assisted living facility after a fall. Patient suffers from dementia and could not provide any meaningful history. History was obtained from the medical record as well as her friend who provided good portion of the history. It seems that the patient has had a few falls at her facility. Unfortunately, the circumstances surrounding the falls are not well established. The patient cannot remember falling. No serious injuries. Unclear if there was any associated dizziness, lightheadedness, palpitations or loss of consciousness. None of this has been documented. While in the emergency room on telemetry the patient was felt to have had episodes of polymorphic ventricular tachycardia. She appeared to be asymptomatic, but the episodes themselves were brief. No associated chest pain or other symptoms. Patient was started on amiodarone and heparin. In general, the patient is very sedentary. She does have a gait disturbance and has been undergoing physical therapy. Allergies Allergy/AdvReac Type Severity Reaction Status Date / Time Sulfa (Sulfonamide Allergy Unknown Unknown Unverified 06/07/23 16:15 Antibiotics) Home Medications Medication Instructions Recorded Confirmed Type cholecalciferol (vitamin D3) 125 125 mcg PO QAM 06/08/20 06/07/23 History mcg (5,000 unit) tablet (Vitamin D3) levothyroxine 125 mcg tablet 125 mcg PO DAILYBB 06/08/20 06/07/23 History lisinopril 10 mg tablet 10 mg PO QAM 06/08/20 06/07/23 History lorazepam 0.5 mg tablet 0.5 mg PO .DAILY AT 12:00 PM 06/08/20 06/07/23 History acetaminophen 325 mg tablet 650 mg PO Q4 PRN Fever Or Pain 10/23/20 06/07/23 History melatonin 3 mg disintegrating 3 mg PO HS 10/23/20 06/07/23 History tablet aspirin 81 mg chewable tablet 81 mg PO DAILY 06/18/21 06/07/23 History docusate sodium 100 mg capsule 100 mg PO HS 06/18/21 06/07/23 History citalopram 40 mg tablet 40 mg PO DAILY 04/29/23 06/07/23 History cyanocobalamin (vitamin B-12) 1,000 mcg PO DAILY 04/29/23 06/07/23 History 1,000 mcg tablet (Vitamin B-12) fluticasone propionate 50 1 spray intranasal HS 04/29/23 06/07/23 History mcg/actuation nasal spray,suspension lorazepam 0.5 mg tablet 0.5 mg PO DAILY pain per harmony 04/29/23 06/07/23 History potassium chloride 20 mEq 20 meq PO DAILY 04/29/23 06/07/23 History tablet,extended release(part/cryst) quetiapine 50 mg tablet 50 mg PO .BID AT 8AM & 2PM 04/29/23 06/07/23 History quetiapine 50 mg tablet 100 mg PO HS 04/29/23 06/07/23 History loperamide 2 mg tablet (Imodium 2 mg PO QID PRN Diarrhea 06/07/23 06/07/23 History A-D) ondansetron HCl 4 mg tablet 4 mg PO Q6H PRN Nausea 06/07/23 06/07/23 History tramadol 50 mg tablet 50 mg PO BID PRN pain 06/07/23 06/07/23 History Patient History Medical History Tinnitus, bilateral Sensorineural hearing loss of both ears Dementia Hypothyroid Social History Smoking Status: Never smoker Hx Alcohol Use: No Hx Substance Use: No Preferred Language: Greenlandic Communication Ability: Effective Traffic Checker Required: No Beliefs That Will Affect Care: None Current Living Situation: Residential and Personal Care Facility Current Living Situation Comment: [place] Other Information That Helps Us Care for You: No Feels Safe at Home: Yes Safety Concerns: Feels Safe At This Time Review of Systems Review of Systems: Per HPI. Patient also appears to have developed significant diarrhea. She denies any abdominal complaints currently. She appeared to have a good appetite and ate breakfast this morning. Physical Exam Physical Exam: She is alert and answered questions. However, she was very forgetful and often ask for help with answers. She cannot provide any meaningful history. Affect was normal. HEENT: Sclerae are anicteric. Pupils are equal and reactive to light and accommodation. Extraocular movements were intact. Neuro: Cranial nerves intact Lungs: Lungs are clear to auscultation bilaterally. There are no rales wheezes or rhonchi. She has normal respiratory effort without use of accessory muscles. There is normal pulmonary excursion. Cardiac: The rhythm was regular. S1 and S2 were normal. There are no murmurs on examination. The PMI was not markedly displaced on palpation. Abdomen: The abdomen was soft and nontender. Extremities: Patient has bilateral radial pulses that are equal in intensity. There is no evidence cyanosis or clubbing. There was no evidence of significant peripheral edema bilaterally. Skin: There are no rashes noted on examination today. Results & Data Vital Signs (Past 12 Hours) Vital Signs Pulse Pulse Resp BP BP Pulse Ox O2 Del Method 06/08/23 08:00 65 20 06/08/23 07:34 66 06/08/23 07:00 65 13 06/08/23 06:08 72 21 137/107 H 97 Room Air 06/08/23 04:00 69 22 152/92 H 06/08/23 02:49 67 18 140/76 97 Room Air 06/08/23 01:00 67 18 97 Room Air 06/08/23 00:01 82 Laboratory Results Abnormal Lab Results 06/07/23 06/07/23 06/07/23 16:05 16:24 18:46 WBC 7.29 RBC 4.17 L Hgb 12.6 Hct 39.8 MCV 95.4 MCH 30.2 MCHC 31.7 L RDW Std Deviation 49.5 H RDW Coeff of Luis Miguel 14.1 Plt Count 274 MPV 9.6 Immature Gran % (Auto) 1.1 Neut % (Auto) 80.5 Lymph % (Auto) 9.1 [place]bot % (Auto) 7.0 Eos % (Auto) 1.8 Baso % (Auto) 0.5 Neut # (Auto) 5.87 Lymph # (Auto) 0.66 L [place] # (Auto) 0.51 Eos # (Auto) 0.13 Baso # (Auto) 0.04 Immature Gran # (Auto) 0.08 APTT Cancelled PTT Ratio Cancelled Heparin Anti-Xa, Unfract Sodium 138 Potassium 3.8 Chloride 111 H Carbon Dioxide 18 L Anion Gap 9 BUN 52 H Creatinine 2.07 H Est Cr Clr Drug Dosing Not Reportable Est GFR ( Amer) 24.9 Est GFR (Non-Af Amer) 21.4 BUN/Creatinine Ratio 25.1 H Glucose 104 H Lactate 1.1 Calcium 8.6 Magnesium 1.8 Total Bilirubin 0.4 AST 14 ALT 12 Alkaline Phosphatase 80 Troponin I High Sens 11.8 Total Protein 6.0 Albumin 3.7 Globulin 2.3 L Albumin/Globulin Ratio 1.6 Lipase 61 TSH 1.649 Urine Color Yellow Urine Appearance Clear Urine pH 5.0 Ur Specific [place] 1.016 Urine Protein Trace H Urine Glucose (UA) Negative Urine Ketones Trace H Urine Blood Negative Urine Nitrite Negative Urine Bilirubin Negative Urine Urobilinogen Negative Ur Leukocyte Esterase Negative Urine WBC (Auto) 1-5 Urine RBC (Auto) 0-4 U Hyaline Cast (Auto) 1-5 U Epithel Cells (Auto) 5-10 H Urine Bacteria (Auto) Negative 06/07/23 06/08/23 22:00 04:21 WBC 6.38 RBC 3.61 L Hgb 10.8 L Hct 34.2 L MCV 94.7 MCH 29.9 MCHC 31.6 L RDW Std Deviation 48.9 H RDW Coeff of Luis Miguel 14.1 Plt Count 269 MPV 9.3 L Immature Gran % (Auto) 0.8 Neut % (Auto) 69.4 Lymph % (Auto) 18.3 [place] % (Auto) 7.4 Eos % (Auto) 3.8 Baso % (Auto) 0.3 Neut # (Auto) 4.43 Lymph # (Auto) 1.17 L [place] # (Auto) 0.47 Eos # (Auto) 0.24 Baso # (Auto) 0.02 Immature Gran # (Auto) 0.05 APTT 36 H PTT Ratio 1.3 Heparin Anti-Xa, Unfract 0.22 L Sodium 138 Potassium 3.8 Chloride 112 H Carbon Dioxide 18 L Anion Gap 8 BUN 40 H Creatinine 1.60 H D Est Cr Clr Drug Dosing 26.4 Est GFR ( Amer) 33.9 Est GFR (Non-Af Amer) 29.3 BUN/Creatinine Ratio 25.0 H Glucose 97 Lactate Calcium 8.0 L Magnesium 2.3 Total Bilirubin AST ALT Alkaline Phosphatase Troponin I High Sens 17.1 H D 19.9 H Total Protein Albumin Globulin Albumin/Globulin Ratio Lipase TSH Urine Color Urine Appearance Urine pH Ur Specific [place] Urine Protein Urine Glucose (UA) Urine Ketones Urine Blood Urine Nitrite Urine Bilirubin Urine Urobilinogen Ur Leukocyte Esterase Urine WBC (Auto) Urine RBC (Auto) U Hyaline Cast (Auto) U Epithel Cells (Auto) Urine Bacteria (Auto) Diagnostic Findings Time admission not reveal any acute cardiopulmonary process. Abdominal x-ray did not reveal any acute abnormality. No fractures. Echocardiogram performed 06/08/2023 revealed normal LV systolic function with ejection fraction 50-55%. Mild LVH. Moderate aortic regurgitation. Moderate mitral regurgitation. Normal estimated pulmonary pressures. ECG Additional Comments: EKG demonstrated normal sinus rhythm with frequent atrial ectopy. PG Care Time/CCT Total # of Minutes Spent Total Time Spent with Patient: Total time spent is greater than 50% in coordination of care (as documented) at patient's floor/unit and/or counseling patient: Coding Level of Care Code 32471 INT INP/OBS CARE 3/75MIN Diagnoses V-tach I47.20 Valvular heart disease I38 Elevated troponin R79.89
[2023-06-08] MEDS: LORazepam 0.5 MG TAB PO SCH (12:38)
[2023-06-08 12:39] LABS: ANTI-Xa, UFH(UnfractionatedHep 0.14 IU/ml (0.3-0.7)
--- NOTE | 2023-06-08 12:54 | Hospitalist Progress Note ---
Date of Service June 08, 2023 Assessment & Plan (1) Diarrhea: (2) Hypothyroid: (3) Dementia: (4) Torsades de pointes: (5) JITENDRA (acute kidney injury): Plan Ms. Jacome is an 82-year-old female with past medical history of hypothyroidism and baseline dementia who was admitted to our service due to 3 days of diarrhea with associated weakness and fatigue and dehydration. She was also being monitored for possible recurrences of V. tach. Diarrhea 1 week of viral illness, normal CT abdomen and pelvis, no leukocytosis Suspect based on improved nausea/vomiting and diarrhea that this is a viral illness Stool bio fire pending, C diff uncollected Patient volume contracted Potassium 3.8, Mg 2.3 Continue volume repletion ordered with plasma-lyte JITENDRA (pre-renal?) -Patient with admission labs showing elevated creatinine from baseline. This is likely related to patient's dehydrated status consequent of her 3 days of volume loss through her diarrhea. -Continue monitoring a.m. labs Polymorphic V-Tach Patient developed multiple episodes of polymorphic V. tach while on monitor during HPI. Episode lasting between 2 to 3 seconds, patient was asymptomatic and conversing normally with provider without chest pain instrumentations during this episode -Patient placed on amiodarone drip as management of v tach. Cardiology consulted Consider her episode of V. tach to be related to artifact, rather than a true polymorphic ventricular tachycardia. Amiodarone drip discontinued. From cardiology standpoint, patient is fit to be discharged. TTE: Normal left ventricular systolic function with mild concentric left ventricular hypertrophy, mild aortic insufficiency, mild mitral regurgitation Elevated Troponins -Very mild elevation of troponins and admission labs (17 increased to 19 then decreased to 15). In the setting of a normal EKG, TTE, and no ischemic signs or symptoms, unlikely this is related to cardiac ischemia.Will continue to monitor. Hypothyroid - TSH normal (1.649) - Continue home levothyroxine Dementia Home quetiapine/citalopram held due to development of torsades Delirium precautions Dispo: consult PT for evaluation in preparation for discharge back to personal half-way once stable DVT: Heparin CODE: Conditional. NO CPR/INTUBATION. OK for shock/meds Dispo: PCU Diet: Admission and Anticipated Discharge Date Admission Date: June 07, 2023 Subjective 82-year-old female patient who has history of hypothyroidism and presented to the emergency department with diarrhea and weakness that have persisted for 3 days. Associated to that she has been experiencing fatigue and reports a fall. The emergency department patient was found to be hypotensive which normalized after IV fluids and empiric Rocephin. Imaging and UA findings in the emergency department unremarkable. She was found to have an JITENDRA likely related to volume contraction from 3 days of diarrhea and hypovolemia. Lactate was 2.1. No fevers recorded. While being evaluated patient developed multiple short episodes of polymorphic V. tach were asymptomatic that lasted between 2 and 3 seconds. Repeat EKG also done around that time showed nonspecific changes and Q waves that raise concern for possible septal infarct, and so she was given ASA and placed on heparin and amiodarone drip. Troponins were 17 and 2-hour repeat at 19. Cardiology consulted. Today patient was evaluated at bedside and she was found to be accompanied by nursing, awake and alert, and disoriented. Nursing states the patient has continuously repeated that she was walking around the [place] and that she wants to go back to her room and seems to be confused. She was placed on soft restraints due to patient trying to remove IVs. She denies having chest pain, shortness of breath, fevers, chills, weakness, or any other systemic symptoms. Review of Systems Review of Systems: As per HPI Physical Exam Physical Exam: General: Awake an alert, confused, pleasant. Afebrile. No acute distress. Cardiac: Regular rate and rhythm, no murmurs/rubs/gallops. Respiratory: Clear to auscultation bilaterally a/p, no wheezes/rales/rhonchi. No increased work of breathing. Symmetrical chest rise. No respiratory distress. Abdomen: Soft, nontender, nondistended. Lower Extremities: No lower extremity edema or swelling. No deep calf pain. Claudia's negative bilaterally. Results & Data Results & Data Vital Signs (Past 12 Hours) Vital Signs Temp Pulse Pulse Resp BP BP Pulse Ox 06/08/23 11:41 37.4 C 67 16 150/72 H 98 06/08/23 08:00 65 20 06/08/23 07:34 66 06/08/23 07:00 65 13 06/08/23 06:08 72 21 137/107 H 97 06/08/23 04:00 69 22 152/92 H 06/08/23 02:49 67 18 140/76 97 06/08/23 01:00 67 18 97 O2 Del Method 06/08/23 11:41 Room Air 06/08/23 08:00 06/08/23 07:34 06/08/23 07:00 06/08/23 06:08 Room Air 06/08/23 04:00 06/08/23 02:49 Room Air 06/08/23 01:00 Room Air
--- NOTE | 2023-06-08 16:00 | Discharge Summary ---
Date of Service June 08, 2023 Admission HPI Per Admitting Provider Angelika Jacome is an 82-year-old female with history of hypothyroidism who presents with diarrhea and weakness for 3 days. Patient is fatigued and had a fall [employer]. He was hypotensive in the 80s, BP rapidly normalized following 1500 cc of saline and empiric Rocephin. UA is not infected appearing. CT of the abdomen and pelvis shows no acute abnormalities. CT of the head is without acute findings, chest x-ray is without acute findings. She has an JITENDRA from baseline creatinine of approximately 1.1, 2.07 and volume contracted on admission. Potassium is normal, she is mildly hypochloremic with a suspected metabolic acidosis. No lactate present at time of initial eval, ordered on hospitalist assessment Angelika seen at the bedside with her friend/POLacy carlisle present. History is limited by dementia, she is pleasant but a very poor historian. Per her daughter/POA Angelika was in her usual state of health up until approximately 7 days ago when she developed a stomach bug and had nonbloody nonbilious nause a/vomiting for a few days and diarrhea. Diarrhea has continued and is mostly liquid. She has had poor p.o. intake. She has had increased fatigue and has had several falls, Thomas is not able to give a history of her whether she lost consciousness or not and does not remember falling. Head CT is normal she has no neck pain. CT of the abdomen and pelvis is with no acute abnormalities. No additional subjective history available Patient has no cardiac history, and denies chest pain, chest pressure, shortness of breath, and pain at time of assessment. While at bedside patient developed multiple episodes of polymorphic V. tach on monitor with a subsequent episode lasting between 2 and 3 seconds. 2 g magnesium was ordered stat and immediately hung. Magnesium level was ordered, subsequently 1.8. She was asymptomatic during her runs of pVT. Potassium was 3.8. Did discuss her case with her POA Angelika at bedside. Confirms DNR/DNI however would be amenable to shock and antiarrhythmic medications. Patient was started on amiodarone. Admitted to PCU for further care. Case was discussed with cardiology, agree with management above. Admission Exam Per Admitting Provider General: Oriented to name only. Pleasant, cooperative HEENT: Atraumatic, normocephalic. Vision and hearing grossly intact Pulm: CTAB A&P. -wheezes, -rales, -rhonchi. Symmetrical chest rise. No increased work of breathing. No respiratory distress. Cardiac: RRR, +sm. Radial pulses intact and symmetrical. Abdominal: Nontender, nondistended, soft. BS present. Ext: warm, dry. NO edema. moves laurita xtremities equally. Principal Diagnosis Diarrheal illness, dehydration Discharge Exam General: Awake an alert, confused, pleasant. Afebrile. No acute distress. Cardiac: Regular rate and rhythm, no murmurs/rubs/gallops. Respiratory: Clear to auscultation bilaterally a/p, no wheezes/rales/rhonchi. No increased work of breathing. Symmetrical chest rise. No respiratory distress. Abdomen: Soft, nontender, nondistended. Lower Extremities: No lower extremity edema or swelling. No deep calf pain. Claudia's negative bilaterally. Discharge Data Allergies Allergy/AdvReac Type Severity Reaction Status Date / Time Sulfa (Sulfonamide Allergy Unknown Unknown Unverified 06/07/23 16:15 Antibiotics) Consultations 06/07/23 18:01 ED Decision to Admit Stat 06/07/23 19:25 Consult Cardiology Routine Ordered Studies 06/07/23 15:55 CT head/brain wo con Stat 06/07/23 17:21 CT abd pelvis wo con Stat Hospital Course (1) Diarrhea: (2) Hypothyroid: (3) Dementia: (4) Torsades de pointes: (5) JITENDRA (acute kidney injury): Plan Ms. Jacome is an 82-year-old female with past medical history of hypothyroidism and baseline dementia who was admitted to our service due to 3 days of diarrhea with associated weakness and fatigue and dehydration. She was also being monitored for possible recurrences of V. tach. Diarrhea (Resolved) 1 week of viral illness, normal CT abdomen and pelvis, no leukocytosis Suspect based on improved nausea/vomiting and diarrhea that this is a viral illness Patient volume contracted but corrected after fluid resuscitation JITENDRA (pre-renal?) (Improved) -Patient with admission labs showing elevated creatinine from baseline. This is likely related to patient's dehydrated status consequent of her 3 days of volume loss through her diarrhea. -Morning labs showing improved creatinine from 2.07-1.60 after fluid resuscitation. However, not back to patient's baseline, and therefore recommend patient continue oral intake of water/fluids to continue with rehydration. Polymorphic V-Tach (False) Patient developed multiple episodes of polymorphic V. tach while on monitor during HPI. Episode lasting between 2 to 3 seconds, patient was asymptomatic and conversing normally with provider. After cardiology evaluation and further testing, this was found to be due to artifact and not a true arrhythmia. - TTE showing normal LV function and mild aortic and mitral regurgitation, but otherwise unremarkable. - Troponin elevation mild and no indicative of TX or arrhythmia (19 --> 17 --> 15) Hypothyroid (Stable) - TSH normal (1.649) - Continue home levothyroxine Dementia (Stable) Home quetiapine/citalopram held due to development of torsades Delirium precautions Patient found fit and stable to be discharged back to her personal snf. POA notified of plan and agrees. Total Time Total Time Spent Total Time Spent (In Minutes): As per attending attestation Discharge Plan Discharge Items Patient Disposition: Personal [facility] Reason For Visit: DIARRHEAL ILLNESS, TORSADES Discharge Diagnosis: diarrheal illness, dehydration Activity: Per Instructions section Non-emergency contact: Primary Care Provider Call non-emergency contact if: your symptoms worsen and your temperature is above 101 Follow-up/Referrals: Jennifer crouchNewfane [Primary Care Provider] - Diet: Heart Healthy Addtl Attending Provider Instructions: You were admitted to the hospital after you are experiencing an episode of weakness and fatigue related to likely dehydration consequent of your 3 days of a diarrheal illness. On admission your labs were showing evidence of this dehydration which was corrected after fluids that were given to you through the vein. While in the emergency department you were noted to have a very brief episode of an arrhythmia (abnormal heart rhythm). We spoke to our in-service respiratory support technician and heart workup to see if this was related to any heart disease. As per our tests and her respiratory support technician evaluation, this was likely just related to artifact (the tapes that were checking your heart rhythm were bumped) instead of a true cardiac cause. Since your dehydration and your diarrheal illness are resolved, we find you fit and stable to be discharged back home today. We encourage you to keep up with oral intake of food and water to make up for any nutritional losses that you may have had during your episode of diarrhea. A discharge summary will be sent to your primary care physician to ensure continuity of care. Please bring this discharge summary with you to your next office appointment so that your provider can review it at that time. Follow-up appointments: Make a follow-up appointment with your PCP within the next week. It is very important that you follow up with them shortly after discharge from the hospital . Keep all your follow-up appointments as already scheduled. If you cannot make an appointment, notify your provider. Medications: Your medication list has been reviewed and reconciled upon discharge to ensure accuracy and continuity of care. An updated list of all your medications is included with your hospital discharge paperwork. Please review this list closely, and make note of any changes. If you have any issues filling these prescriptions, please call [phone] and ask to leave a message for Dr. Huynh. Take your medications as instructed; do not skip a dose of your medicines. M harrison sure all of your doctors know every medicine you are taking (including upxc-iwq-[id number] medicines, vitamins, and supplements). Call your primary care provider before taking any new medicines (including over- the-counter medicines, vitamins, and supplements), because some of these may interact with your current medications, or may make your symptoms worse. Tell your primary care provider if you cannot afford your medications. CONTACT YOUR PRIMARY CARE PROVIDER if you experience any of the following: Worsening of symptoms Fever, chills, or fatigue Difficulty following your treatment plan, or difficulty taking medications CALL 911 OR GO TO THE EMERGENCY DEPARTMENT if you experience any of the following: Sudden, severe abdominal pain or nausea/vomiting Severe chest pain, or chest pain that radiates (moves) to your jaw or arm Sudden, severe shortness of breath or difficulty breathing Thank you for allowing us to participate in your care. Pending Studies at Discharge: No Stand-Alone Forms: My [employer], Smoking Cessation Skilled Items Patient informed of condition?: No (Patient with dementia; Patient's POA informed) DNR: No (Conditional code) Discharge Level of Care: Other Communicable Disease: No Discharge Prognosis: Stable Lines: None Urinary Catheter: No Medications and DC Order Prescriptions: Continued aspirin 81 mg tablet,chewable 81 mg PO DAILY docusate sodium 100 mg capsule 100 mg PO HS Rx Instructions: hold for loose stools lorazepam 0.5 mg tablet 0.5 mg PO .DAILY AT 12:00 PM levothyroxine 125 mcg tablet 125 mcg PO DAILYBB lisinopril 10 mg tablet 10 mg PO QAM cholecalciferol (vitamin D3) [Vitamin D3] 125 mcg (5,000 unit) Tablet 125 mcg PO QAM acetaminophen 325 mg Tablet 650 mg PO Q4 MDD 3g PRN (Reason: Fever Or Pain) melatonin 3 mg Tablet,Disintegrating 3 mg PO HS citalopram 40 mg tablet 40 mg PO DAILY fluticasone propionate 50 mcg/actuation [place],Suspension 1 spray INTRANASAL HS Rx Instructions: administer into each nostril potassium chloride 20 mEq tablet,ER particles/crystals 20 meq PO DAILY quetiapine 50 mg Tablet 50 mg PO .BID AT 8AM & 2PM quetiapine 50 mg Tablet 100 mg PO HS cyanocobalamin (vitamin B-12) [Vitamin B-12] 1,000 mcg Tablet 1,000 mcg PO DAILY lorazepam 0.5 mg tablet 0.5 mg PO DAILY ondansetron HCl 4 mg Tablet 4 mg PO Q6H PRN (Reason: Nausea) loperamide [Imodium A-D] 2 mg Tablet 2 mg PO QID PRN (Reason: Diarrhea) Rx Instructions: stop 06/09/23 tramadol 50 mg tablet 50 mg PO BID PRN (Reason: pain) Discharge Orders: Discharge Order (Routine); Ordered 06/08/23 Ordered By: Mary Huynh Admission Data Admit Date/Time: 06/07/23 20:57 Attending Provider: Christi Woodard Admit Provider: Justice Moore Primary Care Provider: Jennifer [facility] Other Providers: Justice Moore; Walt Knox Other Interventions: Discharge Summary Assessment (RN) Last Done: 06/08/23 16:33 Supervising Physician Co-Signing Physician Notes I personally examined the patient and verified hurst points of history and exam, discussed case, and agree with decision making and plan documented by Dr. Huynh. Evaluated patient with friend Yuliya at bedside. Patiet requiring constant redirection. PT evaluated patient and recommended continued use of walker and PT at [facility]
== END 2023-06-08 16:55 | disposition home or self-care (01) | DRG 392 ==
LOC: ED 15:41 → OBSVTOIN 20:57 → EDINP 20:57 → SUATTDRO 20:57 → INTOOBSV 20:57 → 2E 22:39